=== PATIENT | male | born 1935 | race Caucasian/White ===

== ENCOUNTER 2024-03-14 15:15 | Emergency (ER) | payer MEDICARE ==
[2024-03-14 16:08] LABS: Hematocrit 40.4 % (42.0-52.0); Mean Corpuscular HGB CONC 32.2 g/dL (32.0-36.0); Mean Corpuscular Hemoglobin 24.8 pg (27.0-31.0); Mean Corpuscular Volume 76.9 fl (78.0-98.0); Mean Platelet Volume 6.3 fL (7.4-10.4); Platelet Count 276 10x3/uL (130-400); Red Blood Cell (RBC) Count 5.25 mill/uL (4.70-6.10); White Blood Cell (WBC) Count 6.2 10x3/uL (4.8-10.8)
[2024-03-14 16:13] LABS: Prothrombin Time 13.5 sec (12.0-14.7)
[2024-03-14 16:14] LABS: PTT 31.8 sec (22.9-36.1)
[2024-03-14 16:16] LABS: D-Dimer Test 0.47 mcg/mL (0.27-0.43)
[2024-03-14 16:19] LABS: Anion Gap 14 mmol/L (10-20); BUN (Urea Nitrogen) 22 mg/dL (8.4-25.7); Calc. Creatinine Clearance 0 mL/min (70-130); Calcium 9.2 mg/dL (7.8-10.44); Carbon Dioxide 24 mmol/L (23-31); Chloride 105 mmol/L (98-107); Estimated GFR 37; Glucose 87 mg/dL (83-110); Potassium 4.4 mmol/L (3.5-5.1); Sodium 139 mmol/L (136-145)
[2024-03-14 16:32] LABS: Eosinophils 4 % (0-10); Lymphocytes 17 % (21-51); MDiff Complete? YES; Monocytes 14 % (0-10); Neutrophil 62 % (42-75); Platelet Adequacy Comment Appears Adequate
== END 2024-03-14 17:00 | disposition home or self-care (01) ==
LOC: BURERS 15:15
DX: M79.89 Other specified soft tissue disorders (principal); E78.5 Hyperlipidemia, unspecified; I10 Essential (primary) hypertension; Z79.82 Long term (current) use of aspirin; Z79.899 Other long term (current) drug therapy
CPT/HCPCS: 36415; 80048; 85025; 85379; 85610; 85730; 99284